=== PATIENT | male | born 1995 | race African-American/Black ===

== ENCOUNTER 2016-10-11 09:17 | Emergency (ER) | payer OTHER ==
[2016-10-11 09:32] VITALS: BP 147/70; BMI 31.1
--- NOTE | 2016-10-11 09:36 | DR.EXTPAIN ---
HPI - Time seen Time seen: 09:35 - PCP Primary Care Physician: NONE - Complaint/Symptoms Chief Complaint:: RIGHT ARM CUT WHILE LOADING A TRAILER,. VERY SMALL CUT TO RIGHT ELBOW POSTERIOR WITH NO BLEEDING. ABRASION TO AREA Self Treatment fo Chief Complaint: NONE - Nurses notes reviewed Nurses Notes Review: Yes - Source History Provided: Patient - Mode of arrival Mode of Arrival: Ambulatory - Timing Onset of Chief Complaint: 10/11/16 - Context History of: None - Associated signs and symptoms Associated Signs and Symptoms: Pain PMH - PMH Past Medical History: Yes Past Medical History: Seizures Past Medical History Comment: SEIZURES A CHILD Past Surgical History: No - Family History History of Family Medical Conditions: Yes Family Medical History: Diabetes Mellitus - Social History Does patient currently use any type of tobacco product: No Have you used tobacco products in the last 12 months: No Type of Tobacco Use: None Alcohol Use: Occasionally Do you use any recreational Drugs:: No Lives With: Family Lives Where: Home - infectious screening In the last 2 months have you had wt loss of >10#?: NO Have you had fever, night sweats or hemotysis?: No Have you traveled outside the country in the last 6 months?: No Isolation: Standard ROS - Review of Systems Constitutional: No Symptoms Reported Eyes: No Symptoms Reported ENTM: No Symptoms Reported Respiratoy: No Symptoms Reported Cardiovascular: No Symptoms Reported Gastrointestinal/Abdominal: No Symptoms Reported Genitourinary: No Symptoms Reported Neurological: No Symptoms Reported Musculoskeletal: Elbow (right elbow pain) Integumentary: No Symptoms Reported Hematologic/Lymphatic: No Symptoms Reported Endocrine: No Symptoms Reported Psychiatric: No Symptoms Reported All Other Systems: Reviewed and Negative PE - Vital Signs Vitals: Temperature 97.7 F Pulse Rate 99 Respiratory Rate 16 Blood Pressure 147/70 O2 Sat by Pulse Oximetry 100 - General Limitations: No Limitations General Appearance: Alert, In No Apparent Distress - Head Head Exam: Normal Inspection - Eyes Eye exam: Normal Appearance, EOMI. negative: Scleral Icterus, Conjunctival Injection - Neck Neck Exam: Normal Inspection, Full ROM, Trachea Midline - Respiratory Respiratory Exam: negative: Accessory Muscle Use, Prolonged Expiratory Phase - Extremities Extremities Exam: Full ROM, Tenderness. negative: Normal Inspection, Edema - Upper Extremities Elbow Exam: Full ROM (pain with ROM), Tenderness. negative: Swelling Neurosensory Exam: Normal Exam - Lower Extremities Gait Exam: Observed and Normal - Neurological Neurological Exam: Alert, Oriented X3, CN II-XII Intact - Psychiatric Psychiatric Exam: Normal Mood - Skin Skin Exam: Normal Color. negative: Intact (3mm cut) ROR - XRAY XRAY Interpreted by: Radiologist XRAY Findings: right elbow: no fx - Diagnosis Discharge Problem: Contusion Qualifiers: Encounter type: initial encounter Contusion area: elbow Laterality: right Qualified Code(s): S50.01XA - Contusion of right elbow, initial encounter - Discharge Plan Condition: Stable - Follow ups/Referrals Follow ups/Referrals: N[facility],None [Primary Care Provider] - 3 days - Instructions
[2016-10-11] MEDS ORDERED: NEOSPORIN OINT TOP ONE (09:41)
[2016-10-11] MEDS ORDERED: NEOSPORIN OINT ONE (10:33)
--- NOTE | 2016-10-11 10:53 | RAD ---
HISTORY: Fall, pain Study: Three views right elbow Comparison: None Findings: Normal alignment. No acute fracture or dislocation. The soft tissues are unremarkable. No joint eff usion. IMPRESSION: 1. No acute osseous abnormality. Reported By:
[2016-10-11] MEDS ORDERED: MOTRIN TAB 800 MG PO ONE ×2 (10:57→10:59)
== END 2016-10-11 11:05 | disposition home or self-care (01) ==
LOC: ER 09:48
DX: S50.01XA Contusion of right elbow, initial encounter (principal); W45.8XXA Other foreign body or object entering through skin, initial encounter; Y92.9 Unspecified place or not applicable
CPT/HCPCS: 73070; 99000; 99282